=== PATIENT | male | born 1970 | race Caucasian/White ===

== ENCOUNTER 2019-06-15 17:18 | Emergency (ER) | payer MEDICAID ==
[~2019-06-15] VITALS: Ht 162.6 cm; Wt 51.2 kg
[2019-06-15 17:28] VITALS: BP 92/64
[2019-06-15] MEDS ORDERED: ALBUTEROL/IPRATROPIUM 2.5MG/0.5MG, 3 ML ONE (17:54)
[2019-06-15] MEDS ORDERED: ALBUTEROL/IPRATROPIUM 2.5MG/0.5MG, 3 ML NPPB ONE (18:00)
--- NOTE | 2019-06-15 18:25 | NUR ---
Patient/Caregiver given discharge instructions and they have confirmed that they understand the instructions. Patient ambulatory with steady gait.
== END 2019-06-15 18:26 | disposition home or self-care (01) ==
LOC: ED 18:00
DX: J20.8 Acute bronchitis due to other specified organisms (principal); F17.200 Nicotine dependence, unspecified, uncomplicated
CPT/HCPCS: 71045; 94640; 99283; J7512; J7620

== ENCOUNTER 2019-07-04 13:20 | Emergency (ER) | payer MEDICAID ==
[~2019-07-04] VITALS: Ht 162.6 cm; Wt 52.0 kg
[2019-07-04 13:23] VITALS: BP 120/70
--- NOTE | 2019-07-04 13:40 | NUR ---
Patient/Caregiver given discharge instructions and they have confirmed that they understand the instructions. Patient ambulatory with steady gait. PT LEFT WITH ALL PERSONAL BELONGINGS.
== END 2019-07-04 13:41 | disposition home or self-care (01) ==
LOC: ED 13:30
DX: J00 Acute nasopharyngitis [common cold] (principal); Z76.0 Encounter for issue of repeat prescription
CPT/HCPCS: 99283

== ENCOUNTER 2019-07-23 16:27 | Emergency (ER) | payer MEDICAID ==
[~2019-07-23] VITALS: Ht 165.1 cm; Wt 51.6 kg
--- NOTE | 2019-07-23 17:26 | NUR ---
PT REPORTS HAVING A COUGH FOR THE LAST TWO WKS, STATES HE WAS HERE AT THE HOSPITAL AND DISCHARGED WITH "COUGHING PILLS AND AN INHALER" HE THEN FELT BETTER FOR A SHORT WHILE AND HIS COUGH RETURNED THIS TIME WITH THICK GREEN SPUTUM. PT STATES TEMP MAX 99. "SOMETHING". PT TO CONT PULSE OX, BP MONITOR
[2019-07-23] MEDS ORDERED: AZITHROMYCIN 500 MG TABLET ONE (18:07)
[2019-07-23 18:18] VITALS: BP 105/75
--- NOTE | 2019-07-23 18:18 | NUR ---
PT MEDICATED PER OCT, AWAITING DX CHEST RESULTS
[2019-07-23] MEDS ORDERED: AZITHROMYCIN 500 MG TABLET PO ONE (18:30)
[2019-07-23] MEDS ORDERED: ALBUTEROL/IPRATROPIUM 2.5MG/0.5MG, 3 ML NPPB ONE (18:30)
[2019-07-23] MEDS ORDERED: ALBUTEROL/IPRATROPIUM 2.5MG/0.5MG, 3 ML ONE (18:55)
== END 2019-07-23 19:11 | disposition home or self-care (01) ==
LOC: ED 18:18
DX: J41.1 Mucopurulent chronic bronchitis (principal); F17.200 Nicotine dependence, unspecified, uncomplicated; R09.81 Nasal congestion
CPT/HCPCS: 71045; 94640; 99283; J7512; J7620

== ENCOUNTER 2019-08-28 18:17 | Inpatient (IN) | payer MEDICAID ==
[~2019-08-28] VITALS: Ht 162.6 cm; Wt 53.7 kg
--- NOTE | 2019-08-28 18:22 | NUR ---
Patient called for triage, stated he had to talk to his ride prior to discharge.
[2019-08-28] MEDS ORDERED: KETOROLAC 30 MG/1 ML IVPush ONE (19:00)
[2019-08-28] MEDS ORDERED: SODIUM CHLORIDE 0.9% 1,000ML IVBOLUS ONE (19:00)
[2019-08-28] MEDS ORDERED: SODIUM CHLORIDE FLUSH 10ML SYR IVF ONE (19:00)
[2019-08-28 19:13] LABS: BASOPHILS # (AUTO) 0.03 x10^3/uL (0-0.1); BASOPHILS % (AUTO) 0 % (0-1); EOSINOPHILS # (AUTO) 0.13 x10^3/uL (0-0.4); EOSINOPHILS % (AUTO) 1 % (1-7); LYMPHOCYTES # (AUTO) 1.16 x10^3/uL (1-3.4); LYMPHOCYTES % (AUTO) 12 % (22-44); MD NO; MEAN CORPUSCULAR HEMOGLOBIN 29.5 pg (27.5-34.5); MEAN CORPUSCULAR HGB CONC 33.2 g/dL (33.2-36.2); MEAN CORPUSCULAR VOLUME 89.1 fL (81-97); MEAN PLATELET VOLUME 7.3 fL (7.4-10.4); MONOCYTES # (AUTO) 0.73 x10^3/uL (0.2-0.8); MONOCYTES % (AUTO) 8 % (2-9); NEUTROPHILS # (AUTO) 7.46 x10^3/uL (1.8-6.8); NEUTROPHILS % (AUTO) 78 % (42-75); PLATELET COUNT 421 x10^3/uL (130-400); RED CELL DISTRIBUTION WIDTH 14.9 % (9.4-14.8)
[2019-08-28 19:24] LABS: ALANINE AMINOTRANSFERASE 25 U/L (12-78); ALBUMIN 3.2 g/dL (3.4-5.0); ANION GAP 4 mmol/L (5-15); CALCIUM 8.8 mg/dL (8.5-10.1); CHLORIDE 104 mmol/L (98-107); CREATININE 0.83 mg/dL (0.7-1.3)
--- NOTE | 2019-08-28 19:28 | NUR ---
PRE BOLUS: SUPINE: HR 49 BP 147/85 SITTING: HR 49 BP 135/90 STANDING: HR 76 BP 145/91
[2019-08-28 19:29] LABS: ALKALINE PHOSPHATASE 93 U/L (45-117); BILIRUBIN,TOTAL 0.3 mg/dL (0.2-1.0); TOTAL PROTEIN 7.7 g/dL (6.4-8.2); TROPONIN I < 0.015 ng/mL (0.000-0.045)
[2019-08-28] MEDS ORDERED: KETOROLAC 30 MG/1 ML ONE (19:37)
[2019-08-28] MEDS ORDERED: ONDANSETRON 2MG/ML, 2ML ONE (19:54)
[2019-08-28] MEDS ORDERED: ONDANSETRON 2MG/ML, 2ML IVPush ONE (20:00)
--- NOTE | 2019-08-28 20:06 | NUR ---
pt resting in [facility] at this time. vss and updated in emr. pt medicated per oct. pt provided warm blanket per request. call light is within reach.
--- NOTE | 2019-08-28 21:18 | NUR ---
pt ambulates to restroom with steady gait at this time.
[2019-08-28 22:30] LABS: HCT (SEDRATE) 40.1 % (39.2-51.8)
[2019-08-28] MEDS: NICOTINE 14MG/24 HR PATCH.TD24 TD SCH (22:30)
[2019-08-28] MEDS ORDERED: ONDANSETRON ODT 4 MG PO PRN (22:30)
[2019-08-28] MEDS ORDERED: LIDODERM 5% PATCH TD PRN (22:30)
[2019-08-28] MEDS ORDERED: DOCUSATE 100 MG CAPSULE PO PRN (22:30)
[2019-08-28] MEDS ORDERED: TEMAZEPAM 15 MG CAPSULE PO PRN (22:30)
[2019-08-28] MEDS ORDERED: NICOTINE 14MG/24 HR PATCH.TD24 ONE (22:50)
[2019-08-28 22:52] LABS: TROPONIN I < 0.015 ng/mL (0.000-0.045)
--- NOTE | 2019-08-28 22:55 | NUR ---
PT MEDICATED WITH NICOTINE PATCH PER OCT.
--- NOTE | 2019-08-29 01:38 | NUR ---
PT PROVIDED WITH TURKEY SANDWICH FROM [employer] PER REQUEST.
--- NOTE | 2019-08-29 02:15 | NUR ---
BREAK RN NOTE: PT IS RESTING IN THE RNEY NO NEEDS AT THIS TIME
--- NOTE | 2019-08-29 02:20 | NUR ---
APPLIED SMALL BEAR HUGGAR PER PT'S REQUEST VSS UPDATED HR SLIGHT LOW PT IS AWARE
--- NOTE | 2019-08-29 02:51 | NUR ---
PT SWITCHED TO HOSPITAL BED. PT RESTING COMFORTABLY AT THIS TIME. CALL LIGHT IS WITHIN REACH.
[2019-08-29 04:36] LABS: BASOPHILS # (AUTO) 0.06 x10^3/uL (0-0.1); BASOPHILS % (AUTO) 1 % (0-1); EOSINOPHILS # (AUTO) 0.16 x10^3/uL (0-0.4); EOSINOPHILS % (AUTO) 2 % (1-7); LYMPHOCYTES # (AUTO) 1.59 x10^3/uL (1-3.4); LYMPHOCYTES % (AUTO) 17 % (22-44); MD NO; MEAN CORPUSCULAR HEMOGLOBIN 29.1 pg (27.5-34.5); MEAN CORPUSCULAR HGB CONC 32.4 g/dL (33.2-36.2); MEAN PLATELET VOLUME 7.3 fL (7.4-10.4); MONOCYTES # (AUTO) 0.95 x10^3/uL (0.2-0.8); MONOCYTES % (AUTO) 10 % (2-9); NEUTROPHILS # (AUTO) 6.58 x10^3/uL (1.8-6.8); NEUTROPHILS % (AUTO) 70 % (42-75); PLATELET COUNT 409 x10^3/uL (130-400); RED BLOOD COUNT 4.54 x10^6/uL (4.38-5.82); RED CELL DISTRIBUTION WIDTH 14.6 % (9.4-14.8)
[2019-08-29 04:43] LABS: ANION GAP 6 mmol/L (5-15); CALCIUM 8.3 mg/dL (8.5-10.1); CHLORIDE 106 mmol/L (98-107); CREATININE 0.85 mg/dL (0.7-1.3)
[2019-08-29 04:47] LABS: TROPONIN I < 0.015 ng/mL (0.000-0.045)
--- NOTE | 2019-08-29 04:57 | NUR ---
PT ASLEEP IN [facility] AT THIS TIME; NADN. CALL LIGHT IS WITHIN REACH.
[2019-08-29] MEDS ORDERED: ACETAMINOPHEN 325 MG TABLET ONE ×2 (06:04→12:49)
--- NOTE | 2019-08-29 07:10 | NUR ---
REPORT RECEIVED FROM SHAVON BRYANT. CARE ASSUMED. PT ASLEEP ON HOSPITAL BED, ON FULL MONITOR, EVEN CHEST RISE AND FALL, NAD, CALL LIGHT WITHIN REACH.
--- NOTE | 2019-08-29 07:56 | NUR ---
cardiac rhythm strip printed and put on chart
--- NOTE | 2019-08-29 08:13 | NUR ---
TRAY GIVEN TO PT.
--- NOTE | 2019-08-29 08:23 | NUR ---
MED ORDERED FROM PHARMACY.
[2019-08-29] MEDS ORDERED: POTASSIUM CHLORIDE 10 MEQ in SODIUM CHLORIDE 0.9% 1,000 ML IV SCH (08:30)
[2019-08-29 08:36] LABS: C-REACTIVE PROTEIN, QUANT 0.67 mg/dL (0.02-0.49)
[2019-08-29] MEDS: HEPARIN 5,000 UNITS/ML, 1ML SQ SCH ×2 (08:53→16:09)
--- NOTE | 2019-08-29 08:56 | NUR ---
PT TO MRI THEN CT WITH MACHINERY RIGGER.
--- NOTE | 2019-08-29 09:37 | NUR ---
PT BACK FROM MRI.
[2019-08-29] MEDS ORDERED: KETOROLAC 30 MG/1 ML ONE (09:38)
[2019-08-29] MEDS: KETOROLAC 30 MG/1 ML IVPush SCH ×3 (09:43→21:34)
--- NOTE | 2019-08-29 09:43 | NUR ---
PT MEDICATED PER ORDERS.
--- NOTE | 2019-08-29 10:01 | NUR ---
PT TO CT.
--- NOTE | 2019-08-29 10:07 | NUR ---
PT BACK FROM CT.
[2019-08-29] MEDS ORDERED: OMNIPAQUE 350 MG/ML, 100ML BOTTLE ONE (10:15)
[2019-08-29] MEDS ORDERED: GADOTERATE 7.5 MMOL/15 ML SYR ONE (10:15)
--- NOTE | 2019-08-29 10:18 | NUR ---
Mimi lobato in [facility] - 08/29/19 at 1019 by NITESH PT BACK FROM CT.
--- NOTE | 2019-08-29 12:14 | NUR ---
BREAK RN FOR PRIMARY RN ELMER, RECEIVED REPORT, CARE ASSUMED. PT RESTING IN POSITION OF COMFORT WATCHING TV AND PLAYING ON CELL PHONE. PT REPORTS 05/19 YANG, REQUESTING PAIN MEDICATION. TO REVIEW ORDERS AND MEDICATE PER ADMIT MD. DENIES NEED TO USE RESTROOM. NEURO AND CMS INTACT. A&OX4. VSS. SR ON MONITOR. CALL LIGHT IN REACH. FALL PRECAUTIONS IN PLACE. SIDE RAILS UP. REMAINS TELE HOLD, AWAITING ROOM ASSIGNMENT ON FLOOR.
--- NOTE | 2019-08-29 12:21 | NUR ---
BREAK RN. BEDSIDE REPORT AND CARE BACK TO PRIMARY RN ELMER.
[2019-08-29] MEDS ORDERED: IBUPROFEN 600 MG TABLET ONE (12:29)
[2019-08-29] MEDS: IBUPROFEN 600 MG TABLET PO PRN ×2 (12:32→17:30)
--- NOTE | 2019-08-29 12:32 | NUR ---
PT C/O HEADACHE, MEDICATED WITH PRN MEDS.
[2019-08-29] MEDS: ACETAMINOPHEN 325 MG TABLET PO PRN ×2 (12:51→15:59)
--- NOTE | 2019-08-29 12:51 | NUR ---
PT MEDICATED PER ORDERS FOR HEADACHE.
--- NOTE | 2019-08-29 13:08 | NUR ---
REPORT GIVEN TO SHAVON ARMSTRONG. CARE TRANSFERRED.
[2019-08-29 14:01] VITALS: BP 119/70
[2019-08-29] MEDS ORDERED: IBUPROFEN 200 MG TABLET ONE (17:29)
[2019-08-29 21:31] VITALS: BP 138/76
[2019-08-29] MEDS: NICOTINE 14MG/24 HR PATCH.TD24 TD SCH (21:35)
[2019-08-29 23:32] LABS: AMPHETAMINE SCREEN, URINE Positive (Negative); BARBITURATE SCREEN, URINE Negative (Negative); BENZODIAZEPINE SCREEN, URINE Negative (Negative); CANNABINOID SCREEN, URINE Negative (Negative); COCAINE SCREEN, URINE Negative (Negative); METHADONE SCREEN, URINE Negative (Negative); OPIATE SCREEN, URINE Negative (Negative)
[2019-08-30] VITALS (7 sets, daily range): BP systolic 133–179; BP diastolic 76–95
[2019-08-30] MEDS: HEPARIN 5,000 UNITS/ML, 1ML SQ SCH ×4 (00:30→20:11)
[2019-08-30] MEDS: ACETAMINOPHEN 325 MG TABLET PO PRN (00:31)
[2019-08-30] MEDS ORDERED: ENALAPRILAT 1.25 MG/ML, 1ML ONE ×2 (00:46→01:24)
[2019-08-30] MEDS: ENALAPRILAT 1.25 MG/ML, 2ML IVPush PRN ×2 (00:48→01:25)
[2019-08-30] MEDS: KETOROLAC 30 MG/1 ML IVPush SCH ×4 (01:48→20:12)
[2019-08-30 05:05] LABS: BASOPHILS % (AUTO) 1 % (0-1); EOSINOPHILS # (AUTO) 0.11 x10^3/uL (0-0.4); EOSINOPHILS % (AUTO) 1 % (1-7); LYMPHOCYTES # (AUTO) 1.64 x10^3/uL (1-3.4); LYMPHOCYTES % (AUTO) 15 % (22-44); MD NO; MEAN CORPUSCULAR HEMOGLOBIN 29.4 pg (27.5-34.5); MEAN CORPUSCULAR HGB CONC 32.6 g/dL (33.2-36.2); MEAN CORPUSCULAR VOLUME 90.1 fL (81-97); MEAN PLATELET VOLUME 7.4 fL (7.4-10.4); MONOCYTES % (AUTO) 8 % (2-9); NEUTROPHILS # (AUTO) 8.11 x10^3/uL (1.8-6.8); NEUTROPHILS % (AUTO) 75 % (42-75); PLATELET COUNT 451 x10^3/uL (130-400); RED BLOOD COUNT 4.48 x10^6/uL (4.38-5.82); RED CELL DISTRIBUTION WIDTH 14.5 % (9.4-14.8)
[2019-08-30 05:15] LABS: ANION GAP 6 mmol/L (5-15); CALCIUM 8.2 mg/dL (8.5-10.1); CHLORIDE 106 mmol/L (98-107); CREATININE 0.81 mg/dL (0.7-1.3)
[2019-08-30] MEDS ORDERED: IBUPROFEN 200 MG TABLET ONE (08:56)
[2019-08-30] MEDS: IBUPROFEN 600 MG TABLET PO PRN (08:57)
[2019-08-30] MEDS ORDERED: BUTALB/APAP/CAFFEINE 50MG/325MG/40MG PO PRN (13:00)
[2019-08-30] MEDS ORDERED: PROCHLORPERAZINE 5 MG/ML, 2ML IVPush ONE (15:00)
[2019-08-30] MEDS ORDERED: DIPHENHYDRAMINE 50 MG/ML, 1ML IVPush ONE (17:00)
[2019-08-30] MEDS: SODIUM CHLORIDE 0.9% 1,000 ML IV SCH (20:11)
[2019-08-30] MEDS: NICOTINE 14MG/24 HR PATCH.TD24 TD SCH (20:21)
[2019-08-31 02:22] VITALS: BP 133/83
[2019-08-31] MEDS: KETOROLAC 30 MG/1 ML IVPush SCH ×2 (02:32→09:31)
[2019-08-31] MEDS: HEPARIN 5,000 UNITS/ML, 1ML SQ SCH (05:06)
[2019-08-31] MEDS: SODIUM CHLORIDE 0.9% 1,000 ML IV SCH (06:05)
[2019-08-31 06:20] LABS: BASOPHILS # (AUTO) 0.05 x10^3/uL (0-0.1); BASOPHILS % (AUTO) 1 % (0-1); EOSINOPHILS # (AUTO) 0.14 x10^3/uL (0-0.4); EOSINOPHILS % (AUTO) 2 % (1-7); LYMPHOCYTES # (AUTO) 1.46 x10^3/uL (1-3.4); LYMPHOCYTES % (AUTO) 21 % (22-44); MD NO; MEAN CORPUSCULAR HEMOGLOBIN 29.8 pg (27.5-34.5); MEAN CORPUSCULAR HGB CONC 32.9 g/dL (33.2-36.2); MEAN CORPUSCULAR VOLUME 90.7 fL (81-97); MEAN PLATELET VOLUME 7.5 fL (7.4-10.4); MONOCYTES # (AUTO) 0.84 x10^3/uL (0.2-0.8); MONOCYTES % (AUTO) 12 % (2-9); NEUTROPHILS # (AUTO) 4.59 x10^3/uL (1.8-6.8); NEUTROPHILS % (AUTO) 65 % (42-75); PLATELET COUNT 364 x10^3/uL (130-400); RED BLOOD COUNT 4.18 x10^6/uL (4.38-5.82); RED CELL DISTRIBUTION WIDTH 14.6 % (9.4-14.8)
[2019-08-31 07:09] VITALS: BP 108/68
== END 2019-08-31 10:53 | disposition left against medical advice (07) | DRG 149 ==
LOC: ED 20:40 → EDIP 21:35 → 5SO 08-29 13:59
PROVIDERS: ADMIT Family Medicine; ATTEND Internal Medicine
DX: R42 Dizziness and giddiness (principal); D64.9 Anemia, unspecified; F17.200 Nicotine dependence, unspecified, uncomplicated; J44.9 Chronic obstructive pulmonary disease, unspecified; K44.9 Diaphragmatic hernia without obstruction or gangrene; Z53.29 Procedure and treatment not carried out because of patient's decision for other reasons; K22.8 Other specified diseases of esophagus
CPT/HCPCS: 36415; 70450; 70498; 70553; 71045; 80048; 80053; 80307; 83540; 83550; 83735; 83880; 84100; 84443; 84484; 85025; 85651; 86140; 87040; 87806; 93005; 93306; 99285; G0378; J1644; J1885; J2405; J3480; Q9967; A9575; G0475; J0780; J1200; J7030

== ENCOUNTER 2019-11-26 23:16 | Emergency (ER) | payer MEDICAID ==
[~2019-11-26] VITALS: Ht 162.6 cm; Wt 46.0 kg
--- NOTE | 2019-11-26 23:33 | NUR ---
PA AT BEDSIDE TO ASSESS PT AND DISCUSS POC
--- NOTE | 2019-11-26 23:36 | NUR ---
xray at bedside
[2019-11-26 23:42] VITALS: BP 129/90
--- NOTE | 2019-11-26 23:42 | NUR ---
THIS IS A 49Y M THAT COMES IN TONIGHT FOR COUGH X5-6 DAYS AFTER NOT WEARING RESPIRATOR AT WORK. PT STS HE NEEDS TO BE WEARING A RESPIRATOR WHEN HANDLING THE FINE POWDER BEFORE WATER IS ADDED TO THE CONCRETE MIXTURE. PT RESTING ON RUFUS NADGarth SPEAKING IN FULL SENTENCES SATS REMAIN 99-100%
--- NOTE | 2019-11-27 00:36 | NUR ---
Patient/Caregiver given discharge instructions and they have confirmed that they understand the instructions. Patient ambulatory with steady gait.
== END 2019-11-27 00:40 | disposition home or self-care (01) ==
LOC: ED 23:50
DX: J44.1 Chronic obstructive pulmonary disease with (acute) exacerbation (principal); R05 Cough; F17.210 Nicotine dependence, cigarettes, uncomplicated
CPT/HCPCS: 71045; 99283

== ENCOUNTER 2020-05-01 15:32 | Emergency (ER) | payer SELFPAY ==
[~2020-05-01] VITALS: Ht 162.6 cm; Wt 49.2 kg
[2020-05-01 15:33] VITALS: BP 113/78
--- NOTE | 2020-05-01 16:01 | NUR ---
PT TO ROOM
[2020-05-01 16:39] LABS: MICROSCOPIC NOT IND
== END 2020-05-01 16:34 | disposition home or self-care (01) ==
LOC: ED 16:00
DX: A54.9 Gonococcal infection, unspecified (principal); A55 Chlamydial lymphogranuloma (venereum); I10 Essential (primary) hypertension; J44.9 Chronic obstructive pulmonary disease, unspecified
CPT/HCPCS: 81003; 87491; 87591; 99283

== ENCOUNTER 2020-07-28 16:03 | Emergency (ER) | payer MEDICAID ==
[~2020-07-28] VITALS: Ht 162.6 cm; Wt 54.9 kg
--- NOTE | 2020-07-28 18:38 | NUR ---
GREASE MAKER HEAD NOTE: NO ANSWER WHEN CALLED FROM L[facility]BY FOR VITAL SIGN REASSESSMENT.
[2020-07-28] MEDS ORDERED: AZITHROMYCIN 250 MG TABLET ONE (20:36)
--- NOTE | 2020-07-28 20:40 | NUR ---
MEDS ADMIN PER OCT.
[2020-07-28 20:41] VITALS: BP 124/59
[2020-07-28] MEDS ORDERED: AZITHROMYCIN 500 MG TABLET PO ONE (21:00)
== END 2020-07-28 20:59 | disposition home or self-care (01) ==
LOC: ED 16:45
DX: J15.9 Unspecified bacterial pneumonia (principal); Z20.828 Contact with and (suspected) exposure to other viral communicable diseases; J44.9 Chronic obstructive pulmonary disease, unspecified
CPT/HCPCS: 71045; 87635; 99284; J7512

== ENCOUNTER 2020-08-10 21:35 | Emergency (ER) | payer MEDICAID ==
--- NOTE | 2020-08-10 21:39 | NUR ---
na x 1 per security pt ran away out of the building
== END 2020-08-10 21:41 | disposition left against medical advice (07) ==
LOC: ED 21:38
DX: R69 Illness, unspecified (principal); Z53.21 Procedure and treatment not carried out due to patient leaving prior to being seen by health care provider

== ENCOUNTER 2020-11-05 21:22 | Emergency (ER) | payer MEDICAID ==
[~2020-11-05] VITALS: Ht 160 cm; Wt 53.2 kg
--- NOTE | 2020-11-05 21:46 | NUR ---
Pt states his hernia is sticking out and is larger than normal. Pt also states that as he was walking to the ER his left big toe started hurting. Pt denies trauma to toe. Foot is red and swollen. Pt with obvious large hernia to abd.
--- NOTE | 2020-11-05 22:33 | NUR ---
Pt medicated per order. Another warm blanket given per pt request. Labs sent. xray completed. Will monitor.
[2020-11-05 22:41] LABS: BASOPHILS % (AUTO) 1 % (0-1); EOSINOPHILS % (AUTO) 2 % (1-7); HCT (SEDRATE) 35.2 % (39.2-51.8); LYMPHOCYTES % (AUTO) 16 % (22-44); MEAN CORPUSCULAR HEMOGLOBIN 26.8 pg (27.5-34.5); MEAN CORPUSCULAR HGB CONC 31.9 g/dL (33.2-36.2); MEAN PLATELET VOLUME 7.2 fL (7.4-10.4); MONOCYTES % (AUTO) 10 % (2-9); NEUTROPHILS % (AUTO) 71 % (42-75); PLATELET COUNT 363 x10^3/uL (130-400); RED BLOOD COUNT 4.33 x10^6/uL (4.38-5.82); RED CELL DISTRIBUTION WIDTH 16.3 % (9.4-14.8)
[2020-11-05 22:42] LABS: MD NO
[2020-11-05 22:49] LABS: ALBUMIN 3.4 g/dL (3.4-5.0); ANION GAP 2 mmol/L (5-15); CALCIUM 8.7 mg/dL (8.5-10.1); CHLORIDE 107 mmol/L (98-107); CREATININE 0.95 mg/dL (0.7-1.3)
--- NOTE | 2020-11-05 22:57 | NUR ---
ASSUMED CARE OF PATIENT. REPORT GIVEN FROM SHAVON JC PT RESTING IN ROOM. NO ACUTE DISTRESS NOTED. VS STABLE. CALL LIGHT IN PLACE. PT GIVEN A WARM BLANKET. WILL CONTINUE TO MONITOR.
[2020-11-05 23:31] VITALS: BP 120/69
--- NOTE | 2020-11-05 23:57 | NUR ---
PT IS A&O X4. PT REPORTS HE IS ABLE TO GET HIS MEDICATIONS FILLED. VS STABLE. NO ACUTE DISTRESS. PT HAS APPROPRIATE CLOTHING FOR THE WEATHER. PT IS ABLE TO SAFELY AMBUALTE. TAXI VOUCHER GIVEN.
== END 2020-11-06 | disposition home or self-care (01) ==
LOC: ED 23:44
DX: M10.072 Idiopathic gout, left ankle and foot (principal); K43.9 Ventral hernia without obstruction or gangrene
CPT/HCPCS: 36415; 80048; 82040; 84550; 85025; 85651; 99284